=== PATIENT | female | born 1965 ===

== ENCOUNTER 2020-06-27 13:20 | Outpatient (CLI) | payer OTHER ==
[~2020-06-27 13:20] MED LIST: LEVSIN/SL0.125 MG PO; PERCOCET 5/3251 TAB PO
== END 2020-06-27 13:27 | disposition home or self-care (01) ==
LOC: RAD 13:20
PROVIDERS: ATTEND Orthopaedic Surgery
DX: M25.561 Pain in right knee (principal); M25.562 Pain in left knee